=== PATIENT | female | born 1955 | race Caucasian/White ===

== ENCOUNTER 2021-11-03 05:58 | Emergency (ER) | payer OTHER ==
[~2021-11-03] VITALS: Ht 154.9 cm; Wt 54.4 kg
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
--- NOTE | 2021-11-03 06:48 | NUR ---
XRAY AT BEDSIDE
[2021-11-03] MEDS ORDERED: NALO4SPR BNOSTRILS (07:18)
--- NOTE | 2021-11-03 08:11 | NUR ---
Elevated left leg, provided beside commode, void x1 clear normal no foul smell noted, given water, HOB raised semi - fowlers position, made comfortable, c/o pain, authorized to provide tylenol from MD at this time.
[2021-11-03] MEDS ORDERED: ACETAMINOPHEN ES 500 MG TABLET ONE (08:14)
--- NOTE | 2021-11-03 08:32 | NUR ---
PROVIDED TYLENOL 500 MG 1 TAB WITH ICE WATER, PATIENT REFUSED TO TAKE MEDICATION AT THIS TIME. STATED " IT WOULDN'T DO ANYTHING FOR HER." REPOSTIONED PT FOR COMFORT AND THEN TRANSFERRED PT TO ROOM 18 VIA WHEEL CHAIR FOR SOCIAL SERVICE EVALUATION AT THIS TIME
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
[2021-11-03 08:55] VITALS: BP 127/82
--- NOTE | 2021-11-03 08:55 | NUR ---
Patient discharged to home in stable condition. Written and verbal after care instructions given. Patient verbalizes understanding of instruction.
== END 2021-11-03 08:55 | disposition home or self-care (01) ==
LOC: ER 05:58
DX: S92.002A Unspecified fracture of left calcaneus, initial encounter for closed fracture (principal); F11.10 Opioid abuse, uncomplicated; I10 Essential (primary) hypertension; F17.200 Nicotine dependence, unspecified, uncomplicated; Z59.00 Homelessness unspecified; V49.69XA Unspecified car occupant injured in collision with other motor vehicles in traffic accident, initial encounter; Y93.89 Activity, other specified; Y92.413 State road as the place of occurrence of the external cause; Y99.8 Other external cause status
CPT/HCPCS: 73610-TC; 73630-TC